=== PATIENT | female | born 1990 | race African-American/Black ===

== ENCOUNTER 2017-02-22 20:42 | Inpatient (IN) | payer MEDICAID ==
[~2017-02-22] VITALS: Ht 167.6 cm; Wt 96.6 kg
[2017-02-22] MEDS ORDERED: NALOXONE HCL 0.4 MG/ML 1ML VIAL IM PRN (21:30)
[2017-02-22] MEDS ORDERED: DEXT 5%/LR + PITOCIN 20UNITS/L 1,000 ML IV SCH (21:30)
[2017-02-22] MEDS ORDERED: METHYLERGONOVINE MALEATE 0.2 MG/ML IM PRN (21:30)
[2017-02-22] MEDS ORDERED: CARBOPROST TROMETHAMINE 250 MCG/ML AMPUL IM PRN (21:30)
[2017-02-22] MEDS ORDERED: LACTATED RINGERS 1,000 ML IV SCH (21:30)
[2017-02-22] MEDS ORDERED: PREN-88 PO (21:32)
[2017-02-22] MEDS ORDERED: FERR-63 PO (21:32)
[2017-02-22 21:50] LABS: BASOPHILS % 0.4 % (0.0-2.0); EOSINOPHILS % 1.1 % (0.0-5.0); HEMATOCRIT. 31.8 % (36.0-48.0); HEMOGLOBIN. 10.8 g/dL (12.0-16.0); LYMPHOCYTES % 17.3 % (20.0-50.0); MEAN CORPUSCULAR HEMOGLOBIN 29.3 pg (28.0-32.0); MEAN CORPUSCULAR VOLUME 86.1 fL (81.0-99.0); MEAN PLATELET VOLUME 9.9 fl (7.4-10.4); MONOCYTES % 10.8 % (2.0-8.0); NEUTROPHILS % 70.4 % (40.0-76.0); PLATELET 206 x1000/uL (130-400); RED BLOOD CELL COUNT 3.69 mill/uL (4.2-5.4)
[2017-02-22 21:51] LABS: CLARITY URINE CLEAR (CLEAR); COLOR URINE YELLOW (YELLOW); GLUCOSE URINE NEGATIVE (NEGATIVE); KETONES URINE NEGATIVE (NEGATIVE); LEUKOCYTE ESTERASE URINE NEGATIVE (NEGATIVE); NITRITE URINE NEGATIVE (NEGATIVE); OCCULT BLOOD URINE NEGATIVE (NEGATIVE); PH URINE 6.5 (4.5-8.0); PROTEIN URINE NEGATIVE (NEGATIVE); SPECIFIC GRAVITY URINE 1.019 (1.005-1.030)
[2017-02-22 21:56] LABS: PARTIAL THROMBOPLASTIN TIME 27.5 sec (24.0-34.0); PROTHROMBIN TIME 9.9 sec
[2017-02-22 22:05] LABS: *AMPHETAMINES SCREEN URINE NEGATIVE (NEGATIVE); *BARBITURATES SCREEN URINE NEGATIVE (NEGATIVE); *BENZODIAZEPINES SCREEN URINE NEGATIVE (NEGATIVE); *COCAINE SCREEN URINE NEGATIVE (NEGATIVE); METHADONE URINE SCREEN NEGATIVE (NEGATIVE); OPIATES URINE SCREEN NEGATIVE (NEGATIVE); PHENCYCLIDINE URINE SCREEN NEGATIVE (NEGATIVE)
[2017-02-22 22:24] LABS: CANNABINOID URINE SCREEN PRESUMTIVE POSITIVE (NEGATIVE)
[2017-02-22] MEDS ORDERED: FENTANYL CITRATE/PF 50MCG/ML 2ML VIAL ONE (22:39)
[2017-02-22] MEDS ORDERED: MIDAZOLAM HCL 2 MG/2 ML VIAL ONE (22:40)
[2017-02-22] MEDS ORDERED: MORPHINE SULFATE/PF 1MG/ML 10ML AMP ONE (22:40)
[2017-02-22 22:42] LABS: HEPATITIS B SURFACE ANTIGEN NEGATIVE; RUBELLA IGG 352.1 IU/mL (4.99-10)
[2017-02-22] MEDS ORDERED: ONDANSETRON HCL 4MG/2ML VIAL ONE (22:43)
[2017-02-22] MEDS ORDERED: EPHEDRINE SULFATE 50MG/ML VIAL ONE (22:43)
[2017-02-22] MEDS ORDERED: DEXAMETHASONE 4MG/ML 1ML VIAL ONE (22:43)
[2017-02-22] MEDS ORDERED: SODIUM CHLORIDE 0.9% 10ML VIAL ONE (22:43)
[2017-02-22] MEDS ORDERED: OXYTOCIN 10 UNITS/ML 1ML ONE (22:43)
[2017-02-22] MEDS ORDERED: PHENYLEPHRINE HCL 10 MG/ML 1ML (IV VIAL) IV ONE (22:43)
[2017-02-22] MEDS ORDERED: CEFAZOLIN SODIUM 1000MG/VIAL ONE (22:43)
[2017-02-23] MEDS ORDERED: FENTANYL CITRATE/PF 50MCG/ML 2ML VIAL IV PRN (00:30)
[2017-02-23] MEDS ORDERED: ONDANSETRON HCL 4MG/2ML VIAL IV PRN (00:30)
[2017-02-23] MEDS ORDERED: DIPHENHYDRAMINE 50MG/ML VIAL IV PRN (00:30)
[2017-02-23] MEDS ORDERED: NALOXONE HCL 0.4 MG/ML 1ML VIAL IV PRN (00:30)
[2017-02-23] MEDS: KETOROLAC 30MG/ML VIAL IV SCH ×2 (03:13→09:00)
[2017-02-23 04:00] VITALS: BP 117/83
[2017-02-23 04:30] VITALS: BP 121/74
[2017-02-23 05:00] VITALS: BP 111/72
[2017-02-23 07:56] VITALS: BP 109/66
[2017-02-23] MEDS ORDERED: IBUPROFEN 800MG TABLET PO PRN (09:00)
[2017-02-23 16:18] VITALS: BP 107/69
[2017-02-23] MEDS: IBUPROFEN 800MG TABLET PO PRN ×2 (17:24→23:44)
[2017-02-23 20:05] VITALS: BP 112/82
[2017-02-24 04:00] VITALS: BP 125/80
[2017-02-24] MEDS: IBUPROFEN 800MG TABLET PO PRN ×3 (07:27→21:19)
[2017-02-24 08:08] VITALS: BP 103/65
[2017-02-24 15:34] VITALS: BP 113/90
[2017-02-24 19:20] VITALS: BP 119/74
[2017-02-25 00:35] VITALS: BP 110/58
[2017-02-25 05:00] VITALS: BP 103/64
[2017-02-25] MEDS: IBUPROFEN 800MG TABLET PO PRN (06:14)
[2017-02-25 07:42] VITALS: BP 115/74
[2017-02-27 07:12] LABS: CANNABINOID CONFIRMATION URINE Positive (.)
== END 2017-02-25 10:30 | disposition left against medical advice (07) | DRG 540 ==
LOC: L&D 20:42 → OBSVTOIN 20:42 → 7EST PP/OB 02-23 03:40
PROVIDERS: ADMIT Obstetrics & Gynecology; ATTEND Obstetrics & Gynecology
PROC: 10D00Z1 Extraction of Products of Conception, Low, Open Approach (ICD-10-PCS; principal; 2017-02-23)
DX: O34.211 Maternal care for low transverse scar from previous cesarean delivery (principal); Z37.0 Single live birth; Z3A.37 37 weeks gestation of pregnancy; Z53.21 Procedure and treatment not carried out due to patient leaving prior to being seen by health care provider
CPT/HCPCS: 36415; 80305; 80349; 81003; 85025; 85610; 85730; 86592; 86703; 86762; 86850; 86900; 87340; 88307; A4216; J0171; J0690; J1100; J1885; J2250; J2274; J2370; J2405; J2590; J3010; J7120